=== PATIENT | male | born 1950 | race Caucasian/White ===

== ENCOUNTER 2018-02-28 07:25 | Observation (INO) | payer BC, MEDICARE ==
[2018-02-27 12:16] VITALS: BMI 33.5
--- NOTE | 2018-02-27 22:33 | HP ---
HISTORY OF PRESENT ILLNESS: Mr. Alcaraz is a 67-year-old gentleman who presents for evaluation of what appears to be significant myelopathic symptoms including numbness in the hands and feet with gai t unsteadiness and more recently bowel and bladder dysfunction. MRI scan brought in with disk reveal s high-grade cervical stenosis with underlying T2 change within the spinal cord, most pronounced in C 2-C3 and C3-C4. PAST MEDICAL HISTORY: Significant for chronic pain syndrome. PAST SURGICAL HISTORY: Cholecystectomy. CURRENT MEDICATIONS: Risperidone, desvenlafaxine, omeprazole, ezetimibe, and aspirin. ALLERGIES: No known drug allergies. PHYSICAL EXAMINATION: The patient has significantly disturbed gait. His upper extremity motor exam shows 4/5 strength in all upper extremity movements. ASSESSMENT: Cervical myelopathy. PLAN: Dr. Higuera met with the patient, reviewed imaging, and advocated for posterior decompression C2 to C4 as well as a C3-C4 ACDF. He explained to the patient the risks, benefits, and alternatives of the procedure. The patient expressed understanding and would like to move forward with surgery as sylvia sanz. I do believe the patient is mentally competent and capable of making medical decisions for himself. We will move forward with surgery as planned. Vlad Orta PA-C dictating for Dr. Higuera.
[2018-02-28] MEDS ORDERED: CEFAZOLIN/Water 2 GM/20 ML SYRINGE ONE ×2 (07:54→17:12)
[2018-02-28] MEDS ORDERED: Thrombin 5000 UNITS/5 ML VIAL ONE (08:08)
[2018-02-28] MEDS ORDERED: Bupivacaine HCl 0.5%/Epinephrine 1:200,000/PF 30 ml Vial ONE (08:08)
[2018-02-28] MEDS ORDERED: Fentanyl 100 MCG/2 ML VIAL ONE ×3 (09:02→10:53)
[2018-02-28] MEDS ORDERED: PHENYLEPHRINE-NS 100 MCG/ML 10 ML SYRINGE ONE (09:32)
[2018-02-28] MEDS ORDERED: ePHEDrine/0.9% NaCl/PF SYRINGE 50 mg/10 ml ONE (09:32)
[2018-02-28] MEDS ORDERED: Ondansetron HCl/PF 4 MG/2 ML Vial ONE (09:32)
[2018-02-28] MEDS ORDERED: Lidocaine 1% PF 5 ML VIAL ONE (09:32)
[2018-02-28] MEDS ORDERED: Glycopyrrolate 0.2 MG/ML 5 ML SYRINGE ONE (09:32)
[2018-02-28] MEDS ORDERED: Dexamethasone 20 MG/5 ML VIAL ONE (09:32)
[2018-02-28] MEDS ORDERED: PROPOFOL 200 MG/20 ML VIAL ONE (09:32)
[2018-02-28] MEDS ORDERED: Ondansetron HCl/PF 4 MG/2 ML Vial IVP PRN ×2 (12:07→16:29)
[2018-02-28] MEDS ORDERED: Morphine Sulfate 2 MG/ML SYRINGE SLOW IVP PRN (12:07)
[2018-02-28] MEDS ORDERED: Promethazine HCl 25 MG/ML VIAL SLOW IVP PRN (12:07)
[2018-02-28] MEDS ORDERED: Promethazine HCl 25 MG/ML VIAL IM PRN (12:07)
[2018-02-28] MEDS ORDERED: Meperidine HCl/PF 25 MG/ML VIAL SLOW IVP PRN (12:07)
[2018-02-28] MEDS ORDERED: HYDROmorphone 2 MG/ML VIAL SLOW IVP PRN (12:07)
--- NOTE | 2018-02-28 12:14 | OP ---
DATE OF PROCEDURE: 02/28/2018 SURGEON: Basilio Higuera M.D. ENGINEERING ASSOCIATE: Vlad Orta PA-C INDICATION: Prevent neurologic decline. DIAGNOSIS: Cervical spondylitic myelopathy. PROCEDURE: 1. A posterior cervical laminectomy spanning C2 through C4. 2. Anterior cervical diskectomy and fusion C3-C4. ANESTHESIA: General. TECHNIQUE: The patient was brought into the operating room and placed under general anesthesia. He was flipped from a supine to a prone position on the operating room table. He was kept in a neutral position with respect to his cervical spine. A linear incision was planned over the upper cervical segments. After prepping and draping and after an appropriate pause, the incision was created. The soft tissues were swept away from midline. Self- retaining retractors were placed in the wound for optimal exposure. After confirming the appropriate location with C-arm fluoroscopy, an Adson rongeur was used to remove the spinous process of C3, C4, and the inferior aspect of C2. High-speed cutting drill bit as well as 1 and 2 mm Kerrisons were then used to perform a laminectomy until the C2 through C4 segments were decompressed. After decompressing this area, the wound was irrigated. Hemostasis was maintained throughout. The wound was then closed in anatomic layers and a pressure dressing was applied. While under the same anesthesia, the patient was then flipped into a supine position where a transverse incision was planned over the lateral aspect of the neck on the right. His neck was maintained in a neutral position. After prepping and draping and after an appropriate operative pause, the incision was created. The underlying platysma muscle was identified and incised. A blunt tissue plane anterior to the sternocleidomastoid muscle was used to gain access to the prevertebral space. Self-retaining retractors were placed in the wound for optimal exposure. An annulotomy was then performed in the C3-4 disk space. All disk material as well as anterior and posterior osteophytes were removed. After decompressing the C3-4 segment, a 7 mm lordotic PEEK cage packed with allograft and autograft material was placed within the interbody space. An anterior cervical plate was then fashioned to the front of the spine and secured with a total of 4 fixed screws. Midline and lateral structures were then inspected and found to be free from significant trauma. The wound was irrigated. Hemostasis was maintained throughout. The wound was then closed in anatomic layers and a pressure dressing was applied. There were no known procedural complications. NICKY
[2018-02-28] MEDS ORDERED: Bisacodyl 10 MG SUPP PR PRN (16:24)
[2018-02-28] MEDS ORDERED: diphenhydrAMINE 50 MG/ML VIAL IVP PRN (16:24)
[2018-02-28] MEDS ORDERED: Acetaminophen/Codeine 30-300mg Tablet PO PRN (16:24)
[2018-02-28] MEDS ORDERED: Morphine 4 MG/ML Carpuject SLOW IVP PRN (16:24)
[2018-02-28] MEDS ORDERED: Acetaminophen 650 MG Suppository PR PRN (16:24)
[2018-02-28] MEDS ORDERED: Acetaminophen 325 MG TAB PO PRN (16:24)
[2018-02-28] MEDS ORDERED: Mag-Al 1200 mg/1200 mg/30 ML UDCUP PO PRN (16:24)
[2018-02-28] MEDS ORDERED: diphenhydrAMINE 25 MG CAP PO PRN (16:24)
[2018-02-28] MEDS: Sodium Chloride 0.9% 1,000 ML IV SCH (17:57)
[2018-02-28] MEDS ORDERED: CEFAZOLIN/Water 2 GM/20 ML SYRINGE SLOW IVP SCH (22:00)
[2018-02-28] MEDS: Cyclobenzaprine 10 MG TAB PO PRN (23:51)
[2018-03-01] MEDS: CEFAZOLIN/Water 2 GM/20 ML SYRINGE SLOW IVP SCH ×2 (01:47→09:45)
[2018-03-01] MEDS: Sodium Chloride 0.9% 1,000 ML IV SCH ×2 (04:29→18:54)
[2018-03-01] MEDS: Tamsulosin HCl 0.4 MG CAP PO SCH (05:36)
--- NOTE | 2018-03-01 08:31 | PRG ---
DATE OF SERVICE: 03/01/2018 Mr. Alcaraz is now postop day #1 following posterior cervical decompression with anterior cervical diskectomy and fusion. He was admitted yesterday for significant motor weakness that was new in the postoperative period. This morning his strength continues to improve. He is much more strongly anti gravity in his bilateral lower extremities. His upper extremities, he now can lay on his back and re ach straight up to the ceiling without significant fatigue. His geophysicist strength has improved, but I wo uld still grade about 4-/5. From a subjective standpoint, he also feels like he improved significant ly. He actually walked to the nursing station with a cane this morning, but reports that he was noni y unsteady with his gait. The nurse corroborates this story as does family. PT and OT are consulted . Case management was also consulted for discussion for possible rehab in [place]. I discussed t his also with the patient this morning and he is somewhat reluctant to go, which I understand for fam tosin reasons. We will continue to work with him this morning and I will check back in at lunch time v ia phone to see how his progress is. Will also reach out to case management and discuss the situatio n as well. His bandages are dry, no drainage is noted from the incision sites anterior or posterior. He denies all other complaints.
[2018-03-01] MEDS: risperiDONE 1 MG TAB PO SCH (09:23)
[2018-03-01] MEDS: Acetaminophen/Codeine 30-300mg Tablet PO PRN ×4 (09:23→21:13)
[2018-03-01] MEDS: Ezetimibe 10 MG TAB PO SCH (09:23)
[2018-03-01] MEDS: DESVENLAFAXINE 50 MG PO SCH (09:45)
--- NOTE | 2018-03-01 11:16 | PRG ---
DATE OF SERVICE: 03/01/2018 Mr. Alcaraz is 1 day status post an anterior and posterior cervical decompression for cervical spon dylitic myelopathy. Preoperatively Mr. Alcaraz had gait imbalance, numbness in the hands and feet, give-way weakness in the legs and bowel and bladder dysfunction. In the postoperative setting yeste rday, he had worsening weakness in the upper and lower extremities. Fortunately, this has recovered substantially over the last 24 hours. We have advocated both before and after surgery inpatient reha b, but he is very reluctant to do so. We will address that with him again today and if he does not w bam to move forward with rehab we will dismiss him home with plans for outpatient physical therapy.
[2018-03-01] MEDS: Cyclobenzaprine 10 MG TAB PO PRN (21:13)
[2018-03-02] MEDS: Acetaminophen/Codeine 30-300mg Tablet PO PRN ×2 (02:47→05:47)
[2018-03-02] MEDS: Tamsulosin HCl 0.4 MG CAP PO SCH (05:47)
--- NOTE | 2018-03-02 08:08 | PRG ---
DATE OF SERVICE: 03/02/2018 Mr. Alcaraz, this morning, is resting deeply at bedside. He awakens easily and then falls back asl eep. According to his , he has been able to walk to the bathroom with some minimal assist from h er, which is a big improvement. His motor function in the upper and lower extremities continues to i mprove and is actually better than it was in the immediate postoperative period. We are awaiting an expedited approval from [facility] rehabilitation. I will follow up with case management gerald blair this morning. Hopefully, we can get him transferred over there today. I have signed all paperw ork necessary for this process to her. Vlad Orta PA-C., dictating for Dr. Higuera.
[2018-03-02] MEDS: risperiDONE 1 MG TAB PO SCH (09:31)
[2018-03-02] MEDS: Ezetimibe 10 MG TAB PO SCH (09:31)
[2018-03-02] MEDS: Cyclobenzaprine 10 MG TAB PO PRN (09:31)
[2018-03-02] MEDS: Sodium Chloride 0.9% 1,000 ML IV SCH (09:32)
[2018-03-02] MEDS: DESVENLAFAXINE 50 MG PO SCH (09:32)
[2018-03-02 11:54] VITALS: BP 133/73; TEMP 98.1
--- NOTE | 2018-03-04 23:01 | EKG ---
Test Reason : PREOP Blood Pressure : / mmHG Vent. Rate : 081 BPM Atrial Rate : 081 BPM P-R Int : 166 ms QRS Dur : 092 ms QT Int : 394 ms P-R-T Axes : 065 019 039 degrees QTc Int : 457 ms Normal sinus rhythm with sinus arrhythmia Incomplete right bundle branch block Borderline ECG No previous ECGs available Confirmed by Ellis SMITH ([id number]) on 03/04/2018 11:01:06 PM Referred By: TAMARA Confirmed By:Ellis SMITH
== END 2018-03-02 13:26 ==
LOC: EDBD → SDC 07:25 → SURG A 17:48
PROVIDERS: ADMIT Neurological Surgery; ATTEND Neurological Surgery
PROC: 0RG10A0 Fusion of Cervical Vertebral Joint with Interbody Fusion Device, Anterior Approach, Anterior Column, Open Approach (ICD-10-PCS; principal; 2018-02-28)
PROC: 0RT30ZZ Resection of Cervical Vertebral Disc, Open Approach (ICD-10-PCS; 2018-02-28)
PROC: 01N10ZZ Release Cervical Nerve, Open Approach (ICD-10-PCS; 2018-02-28)
DX: M47.12 Other spondylosis with myelopathy, cervical region (principal); G89.4 Chronic pain syndrome; Z79.82 Long term (current) use of aspirin; Z79.899 Other long term (current) drug therapy
CPT/HCPCS: 76001; 93005; 93010; 96374; 96376; C1713; C1776; G0378; G8978-GP-CL; G8979-GP-CJ; G8987-GO-CL; G8988-GO-CJ; J0131; J0670; J1100; J2001; J2405; J2704; J3010

== ENCOUNTER 2018-04-12 08:47 | Outpatient (CLI) | payer BC, MEDICARE ==
--- NOTE | 2018-04-12 10:17 | RAD ---
[id number] VIEWS CERVICAL SPINE: HISTORY: Spondylosis with myelopathy, M47.12. FINDINGS: AP, lateral, and open-mouth odontoid views of the cervical spine are obtained. Images demonstrate plates and screws seen in the infraorbital regions bilaterally. There has been ACDF involving the C3-4 vertebral level. Anterior bridging osteophytes seen involving the C4, C5,C6, and C7 levels. Minimal anterolisthesis of C2 on C3 is seen. No evidence of acute cervical spine fracture is seen. The patient has had previous laminectomy at the C3 level. IMPRESSION: C3-4 postsurgical changes with C3 laminectomy. No evidence of acute cervical spine fracture is seen. POS: C
== END 2018-04-12 08:48 | disposition home or self-care (01) ==
LOC: TBSIIMAG 08:47
PROVIDERS: ATTEND Neurological Surgery
DX: M47.12 Other spondylosis with myelopathy, cervical region (principal); Z98.890 Other specified postprocedural states
CPT/HCPCS: 72040